=== PATIENT | male | born 1950 | race African-American/Black ===

== ENCOUNTER 2020-12-26 14:06 | Inpatient (IN) | payer SELFPAY ==
[~2020-12-26] VITALS: Ht 182.9 cm; Wt 81.8 kg
[2020-12-26] MEDS ORDERED: SODIUM CHLORIDE 0.9% 1,000 ML IV ONE (14:30)
[2020-12-26 14:42] LABS: HEMATOCRIT. 33.7 % (42.0-52.0); HEMOGLOBIN. 11.4 g/dL (14.0-18.0); MEAN CORPUSCULAR VOLUME 88.8 fL (80.0-94.0); MEAN PLATELET VOLUME 8.3 fl (7.4-10.4); PLATELET 157 x1000/uL (130-400); RED BLOOD CELL COUNT 3.79 mill/uL (4.7-6.1); RED CELL DISTRIBUTION WIDTH 16.5 % (11.6-14.6)
[2020-12-26 14:48] LABS: CHLORIDE 120 mEq/L (98-107)
[2020-12-26 14:51] LABS: ETHANOL BLOOD < 10 mg/dL
[2020-12-26 15:05] LABS: PLATELET ESTIMATE NORMAL
[2020-12-26] MEDS ORDERED: SODIUM CHLORIDE 0.45% 1,000 ML IV ONE (16:15)
[2020-12-26 18:07] LABS: CLARITY URINE CLEAR (CLEAR); COLOR URINE YELLOW (YELLOW); KETONES URINE TRACE (NEGATIVE); LEUKOCYTE ESTERASE URINE NEGATIVE (NEGATIVE); NITRITE URINE NEGATIVE (NEGATIVE); OCCULT BLOOD URINE NEGATIVE (NEGATIVE); PROTEIN URINE NEGATIVE (NEGATIVE); SPECIFIC GRAVITY URINE 1.019 (1.005-1.030)
[2020-12-26 18:09] LABS: *AMPHETAMINES SCREEN URINE NEGATIVE (NEGATIVE)
[2020-12-26 18:10] LABS: *BARBITURATES SCREEN URINE NEGATIVE (NEGATIVE); *BENZODIAZEPINES SCREEN URINE NEGATIVE (NEGATIVE); *COCAINE SCREEN URINE NEGATIVE (NEGATIVE); METHADONE URINE SCREEN NEGATIVE (NEGATIVE); OPIATES URINE SCREEN NEGATIVE (NEGATIVE)
[2020-12-26 18:11] LABS: CANNABINOID URINE SCREEN NEGATIVE (NEGATIVE); PHENCYCLIDINE URINE SCREEN NEGATIVE (NEGATIVE)
[2020-12-26] MEDS ORDERED: CLONIDINE 0.1MG TABLET PO PRN (19:45)
[2020-12-26] MEDS ORDERED: ACETAMINOPHEN 325MG TABLET PO PRN ×2 (19:45)
[2020-12-26] MEDS ORDERED: IPRATROPIUM/ALBUTEROL 0.5-3(2.5)MG/3ML NEB NEB PRN (19:45)
[2020-12-26] MEDS ORDERED: MAGNESIUM/ALUMINUM HYDROXIDE/SIMETHICONE 30ML UDC PO PRN (19:45)
[2020-12-26] MEDS ORDERED: KETOROLAC 15MG/ML VIAL IV PRN (19:45)
[2020-12-26] MEDS ORDERED: NITROGLYCERIN 0.4MG TABLET SL SL PRN (19:45)
[2020-12-26] MEDS ORDERED: DOCUSATE SODIUM 100MG CAPSULE PO PRN (19:45)
[2020-12-26] MEDS ORDERED: ZOLPIDEM TARTRATE 5MG TABLET PO PRN (19:45)
[2020-12-26] MEDS ORDERED: ONDANSETRON HCL 4MG/2ML INJ IV PRN (19:45)
[2020-12-26] MEDS ORDERED: GUAIFENESIN 200MG/10ML SUGAR FREE UDC PO PRN (19:45)
[2020-12-26] MEDS ORDERED: KCL 20MEQ/100ML PREMIX 100 ML IV ONE (20:00)
[2020-12-26] MEDS ORDERED: DEXTROSE 50% WATER 50ML SYRINGE IV PRN (20:15)
[2020-12-26 20:23] LABS: T4 FREE 0.91 ng/dL (0.76-1.46)
[2020-12-26] MEDS: ENOXAPARIN 40MG/0.4ML SYR SUBCUT SCH (20:57)
[2020-12-26] MEDS: INSULIN LISPRO 100 UNITS/ML SUBCUT SCH (21:00)
[2020-12-26] MEDS: FAMOTIDINE 20MG TABLET PO SCH (21:26)
[2020-12-26] MEDS: ASCORBIC ACID 500 MG TABLET PO SCH (21:27)
[2020-12-26] MEDS: BLOOD SUGAR DIAGNOSTIC STRIP TEST SCH (21:45)
[2020-12-26] MEDS: DEXT 5%/0.45% NACL 1000ML 1,000 ML IV SCH (22:47)
[2020-12-27] VITALS: BP 116/68
[2020-12-27 00:19] LABS: CREATINE KINASE 143 IU/L (39-308)
[2020-12-27 03:08] VITALS: BP 116/68
[2020-12-27] MEDS: DEXT 5%/0.45% NACL 1000ML 1,000 ML IV SCH ×2 (06:38→17:19)
[2020-12-27] MEDS: BLOOD SUGAR DIAGNOSTIC STRIP TEST SCH ×4 (06:39→20:20)
[2020-12-27] MEDS: INSULIN LISPRO 100 UNITS/ML SUBCUT SCH ×3 (07:40→21:00)
[2020-12-27] MEDS ORDERED: INFLUENZA VACCINE 05/PF 0.5 ML SYRINGE IM ONE (10:00)
[2020-12-27] MEDS: ZINC SULFATE 220 MG ( 50 ) CAPSULE PO SCH (10:42)
[2020-12-27] MEDS: FAMOTIDINE 20MG TABLET PO SCH ×2 (10:42→20:19)
[2020-12-27] MEDS: CHOLECALCIFEROL (D3) 1000 UNIT TABLET PO SCH (10:42)
[2020-12-27] MEDS: ASPIRIN 325MG EC TABLET PO SCH (10:43)
[2020-12-27] MEDS: ASCORBIC ACID 500 MG TABLET PO SCH ×2 (10:43→20:19)
[2020-12-27 11:03] LABS: CHLORIDE 117 mEq/L (98-107)
[2020-12-27 11:11] LABS: PHOSPHORUS 2.1 mg/dL (2.5-4.9)
[2020-12-27 11:13] LABS: CREATINE KINASE 80 IU/L (39-308)
[2020-12-27 11:14] LABS: CREATINE KINASE MB FRACTION 3.4 ng/mL (0.5-3.6)
[2020-12-27] MEDS ORDERED: POTASSIUM CHLORIDE 20MEQ/PACKET PO NR (16:45)
[2020-12-27] MEDS ORDERED: POTASSIUM PHOS,M-BASIC-D-BASIC 15 MMOL in DEXT 5% WATER 245 ML IV NR (18:00)
[2020-12-27 20:00] VITALS: BP 116/83
[2020-12-27] MEDS: ENOXAPARIN 40MG/0.4ML SYR SUBCUT SCH (20:20)
[2020-12-28] MEDS: DEXT 5%/0.45% NACL 1000ML 1,000 ML IV SCH ×2 (01:45→11:39)
[2020-12-28 04:00] VITALS: BP 117/75
[2020-12-28] MEDS: BLOOD SUGAR DIAGNOSTIC STRIP TEST SCH ×4 (06:33→21:08)
[2020-12-28] MEDS: INSULIN LISPRO 100 UNITS/ML SUBCUT SCH ×4 (06:41→21:00)
[2020-12-28 07:38] LABS: HEMATOCRIT. 40.1 % (42.0-52.0); HEMOGLOBIN. 12.9 g/dL (14.0-18.0); MEAN CORPUSCULAR HEMOGLOBIN 28.9 pg (28.0-32.0); MEAN CORPUSCULAR VOLUME 89.8 fL (80.0-94.0); MEAN PLATELET VOLUME 9.3 fl (7.4-10.4); PLATELET 165 x1000/uL (130-400); RED BLOOD CELL COUNT 4.47 mill/uL (4.7-6.1)
[2020-12-28 07:44] LABS: CHLORIDE 116 mEq/L (98-107)
[2020-12-28 07:59] LABS: PHOSPHORUS 2.2 mg/dL (2.5-4.9)
[2020-12-28] MEDS: ZINC SULFATE 220 MG ( 50 ) CAPSULE PO SCH ×2 (09:00→10:03)
[2020-12-28] MEDS: FAMOTIDINE 20MG TABLET PO SCH ×3 (09:00→20:52)
[2020-12-28] MEDS: CHOLECALCIFEROL (D3) 1000 UNIT TABLET PO SCH ×2 (09:00→10:03)
[2020-12-28] MEDS: ASCORBIC ACID 500 MG TABLET PO SCH ×3 (09:00→20:52)
[2020-12-28] MEDS: ASPIRIN 325MG EC TABLET PO SCH ×2 (09:00→10:03)
[2020-12-28 10:50] LABS: PLATELET ESTIMATE NORMAL
[2020-12-28 12:00] VITALS: BP 121/80
[2020-12-28] MEDS ORDERED: HALOPERIDOL LACTATE 5MG/ML VIAL IM PRN (15:30)
[2020-12-28 20:00] VITALS: BP 149/80
[2020-12-28] MEDS: ENOXAPARIN 40MG/0.4ML SYR SUBCUT SCH (20:51)
[2020-12-29] VITALS: BP_SYST 120; BP_SYST 99; BP_DIAS 45; BP_DIAS 63
[2020-12-29] MEDS: INSULIN LISPRO 100 UNITS/ML SUBCUT SCH ×4 (06:12→20:51)
[2020-12-29] MEDS: BLOOD SUGAR DIAGNOSTIC STRIP TEST SCH ×4 (06:12→20:51)
[2020-12-29] MEDS: DEXT 5%/0.45% NACL 1000ML 1,000 ML IV SCH ×2 (07:41→17:01)
[2020-12-29 08:00] VITALS: BP 128/78
[2020-12-29] MEDS: FAMOTIDINE 20MG TABLET PO SCH ×2 (09:10→20:51)
[2020-12-29] MEDS: ASPIRIN 325MG EC TABLET PO SCH (09:10)
[2020-12-29] MEDS: ASCORBIC ACID 500 MG TABLET PO SCH ×2 (09:11→20:51)
[2020-12-29] MEDS: ZINC SULFATE 220 MG ( 50 ) CAPSULE PO SCH (09:11)
[2020-12-29] MEDS: CHOLECALCIFEROL (D3) 1000 UNIT TABLET PO SCH (09:11)
[2020-12-29 12:00] VITALS: BP 110/78
[2020-12-29 20:00] VITALS: BP 140/89
[2020-12-29] MEDS: ENOXAPARIN 40MG/0.4ML SYR SUBCUT SCH (20:00)
[2020-12-30] VITALS: BP 123/87
[2020-12-30 04:00] VITALS: BP 114/89
[2020-12-30] MEDS: INSULIN LISPRO 100 UNITS/ML SUBCUT SCH ×4 (07:40→21:00)
[2020-12-30] MEDS: BLOOD SUGAR DIAGNOSTIC STRIP TEST SCH ×4 (07:50→21:00)
[2020-12-30] MEDS: CHOLECALCIFEROL (D3) 1000 UNIT TABLET PO SCH (09:00)
[2020-12-30] MEDS: FAMOTIDINE 20MG TABLET PO SCH ×2 (09:00→21:00)
[2020-12-30] MEDS: ZINC SULFATE 220 MG ( 50 ) CAPSULE PO SCH (09:00)
[2020-12-30] MEDS: ASPIRIN 325MG EC TABLET PO SCH (09:00)
[2020-12-30] MEDS: ASCORBIC ACID 500 MG TABLET PO SCH ×2 (09:00→21:00)
[2020-12-30] MEDS: DEXT 5%/0.45% NACL 1000ML 1,000 ML IV SCH ×2 (13:45→22:58)
[2020-12-30 20:00] VITALS: BP 138/87
[2020-12-30] MEDS: ENOXAPARIN 40MG/0.4ML SYR SUBCUT SCH (20:00)
[2020-12-31 04:00] VITALS: BP 108/75
[2020-12-31] MEDS: BLOOD SUGAR DIAGNOSTIC STRIP TEST SCH ×4 (07:10→20:24)
[2020-12-31] MEDS: INSULIN LISPRO 100 UNITS/ML SUBCUT SCH ×4 (07:40→20:47)
[2020-12-31 08:00] VITALS: BP 122/89
[2020-12-31] MEDS: CHOLECALCIFEROL (D3) 1000 UNIT TABLET PO SCH (09:00)
[2020-12-31] MEDS: ASPIRIN 325MG EC TABLET PO SCH (09:00)
[2020-12-31] MEDS: ZINC SULFATE 220 MG ( 50 ) CAPSULE PO SCH (09:00)
[2020-12-31] MEDS: DEXT 5%/0.45% NACL 1000ML 1,000 ML IV SCH ×2 (09:45→19:45)
[2020-12-31 12:00] VITALS: BP 119/80
[2020-12-31 17:00] VITALS: BP 115/79
[2020-12-31 20:00] VITALS: BP 104/79
[2020-12-31] MEDS: ENOXAPARIN 40MG/0.4ML SYR SUBCUT SCH (20:47)
[2020-12-31] MEDS: ASCORBIC ACID 500 MG TABLET PO SCH (20:48)
[2020-12-31] MEDS: FAMOTIDINE 20MG TABLET PO SCH (20:48)
[2021-01-01 00:10] VITALS: BP 119/72
[2021-01-01 04:00] VITALS: BP 101/80
[2021-01-01] MEDS: DEXT 5%/0.45% NACL 1000ML 1,000 ML IV SCH ×2 (04:53→15:45)
[2021-01-01 08:00] VITALS: BP 105/83
[2021-01-01] MEDS: CHOLECALCIFEROL (D3) 1000 UNIT TABLET PO SCH (09:00)
[2021-01-01] MEDS: ZINC SULFATE 220 MG ( 50 ) CAPSULE PO SCH (09:00)
[2021-01-01] MEDS: FAMOTIDINE 20MG TABLET PO SCH ×2 (09:00→21:45)
[2021-01-01] MEDS: ASPIRIN 325MG EC TABLET PO SCH (09:00)
[2021-01-01] MEDS: ASCORBIC ACID 500 MG TABLET PO SCH ×2 (09:00→21:45)
[2021-01-01 12:00] VITALS: BP 107/75
[2021-01-01 20:00] VITALS: BP 107/67
[2021-01-01] MEDS: ENOXAPARIN 40MG/0.4ML SYR SUBCUT SCH (20:44)
[2021-01-01] MEDS: BLOOD SUGAR DIAGNOSTIC STRIP TEST SCH (20:48)
[2021-01-01] MEDS: INSULIN LISPRO 100 UNITS/ML SUBCUT SCH (20:49)
[2021-01-02] VITALS (7 sets, daily range): BP systolic 95–108; BP diastolic 61–72
[2021-01-02] MEDS: DEXT 5%/0.45% NACL 1000ML 1,000 ML IV SCH ×2 (01:45→13:43)
[2021-01-02] MEDS: BLOOD SUGAR DIAGNOSTIC STRIP TEST SCH ×4 (06:39→19:58)
[2021-01-02] MEDS: INSULIN LISPRO 100 UNITS/ML SUBCUT SCH ×3 (06:50→17:14)
[2021-01-02] MEDS: ASPIRIN 325MG EC TABLET PO SCH (09:30)
[2021-01-02] MEDS: ZINC SULFATE 220 MG ( 50 ) CAPSULE PO SCH (09:31)
[2021-01-02] MEDS: CHOLECALCIFEROL (D3) 1000 UNIT TABLET PO SCH (09:31)
[2021-01-02] MEDS: ASCORBIC ACID 500 MG TABLET PO SCH ×2 (09:31→21:22)
[2021-01-02] MEDS: FAMOTIDINE 20MG TABLET PO SCH ×2 (09:34→21:22)
[2021-01-02] MEDS: ENOXAPARIN 40MG/0.4ML SYR SUBCUT SCH (21:23)
[2021-01-03] MEDS: DEXT 5%/0.45% NACL 1000ML 1,000 ML IV SCH (00:57)
[2021-01-03] MEDS: INSULIN LISPRO 100 UNITS/ML SUBCUT SCH ×2 (00:57→05:19)
[2021-01-03 03:33] VITALS: BP 79/53
[2021-01-03] MEDS ORDERED: SODIUM CHLORIDE 0.9% 1,000 ML IV SCH ×2 (03:45→03:49)
[2021-01-03] MEDS: BLOOD SUGAR DIAGNOSTIC STRIP TEST SCH (05:19)
[2021-01-03] MEDS ORDERED: DOPAMINE 800MG PREMIX (DOUBLE) 250 ML IV PRN (06:00)
[2021-01-03] MEDS ORDERED: ATROPINE SULFATE 1MG/10ML SYR ONE (08:16)
[2021-01-03] MEDS ORDERED: SODIUM BICARBONATE 8.4% 1 MEQ/ML 50ML SYR IV ONE (08:16)
[2021-01-03] MEDS ORDERED: EPINEPHRINE 0.1MG/ML (1:10,000) 10ML SYR ONE (08:16)
[2021-01-03] MEDS ORDERED: CALCIUM CHLORIDE 1GM/10ML SYR IV ONE (08:16)
== END 2021-01-03 06:19 | DRG 52 ==
LOC: ER 14:06 → EDBEDREQTM 14:34 → EDBEDREQSVC 16:53 → EDBEDREQ 16:53 → 8WST 18:17 → EDBEDREQTM 18:32 → EDBEDREQ 18:32 → ENRESERV 22:07 → 8WST 12-27 22:53
PROVIDERS: ADMIT Internal Medicine; ATTEND Internal Medicine
PROC: 5A12012 Performance of Cardiac Output, Single, Manual (ICD-10-PCS; principal; 2021-01-03)
PROC: 5A1935Z Respiratory Ventilation, Less than 24 Consecutive Hours (ICD-10-PCS; 2021-01-03)
PROC: 0BH17EZ Insertion of Endotracheal Airway into Trachea, Via Natural or Artificial Opening (ICD-10-PCS; 2021-01-03)
PROC: B54BZZA Ultrasonography of Right Lower Extremity Veins, Guidance (ICD-10-PCS; 2021-01-03)
PROC: 06HY33Z Insertion of Infusion Device into Lower Vein, Percutaneous Approach (ICD-10-PCS; 2021-01-03)
DX: G92.8 Other toxic encephalopathy (principal); E43 Unspecified severe protein-calorie malnutrition; E87.0 Hyperosmolality and hypernatremia; E83.51 Hypocalcemia; I46.9 Cardiac arrest, cause unspecified; I16.1 Hypertensive emergency; E66.9 Obesity, unspecified; E87.6 Hypokalemia; K43.9 Ventral hernia without obstruction or gangrene; E11.51 Type 2 diabetes mellitus with diabetic peripheral angiopathy without gangrene; S90.822A Blister (nonthermal), left foot, initial encounter; S90.821A Blister (nonthermal), right foot, initial encounter; X58.XXXA Exposure to other specified factors, initial encounter; Y93.89 Activity, other specified; Z68.24 Body mass index [BMI] 24.0-24.9, adult; Z79.4 Long term (current) use of insulin; Y92.89 Other specified places as the place of occurrence of the external cause; Y99.8 Other external cause status
CPT/HCPCS: 36415; 71045; 80053; 80061; 80305; 80320; 81003; 82550; 82553; 82607; 82728; 82746; 82962; 83036; 83540; 83550; 83735; 84100; 84145; 84439; 84443; 84484; 85025; 85379; 92950; 93306; 93923; 93970; 97161; 97166; 99285; C1893; J0461; J1650; J1815; J3480; J3490; J7030; J7060; G0480